=== PATIENT | female | born 1960 | race Two or more races ===

== ENCOUNTER 2022-05-05 04:24 | Inpatient (IN) | payer OTHER ==
[2022-05-05] VITALS (8 sets, daily range): BP systolic 98–130; BP diastolic 56–81
[~2022-05-05] VITALS: Ht 152.4 cm; Wt 62.1 kg
--- NOTE | 2022-05-05 05:12 | NUR ---
TELE/TREATER NOTES DIRECT ADMIT FROM [facility], BIB [facility] PERSONNEL VIA [employer] TO [id number]. PT AWAKE, A/OX4, MONGOLIAN SPEAKING, ABLE TO MAKE NEEDS KNOWN. SHE DENIES PAIN AT THIS TIME, NO C/O CHEST PAIN, NO N/V. RESPIRATIONS EVEN/UNLABORED. ON O2 @2LPM VIA NC. PT AMBULATORY WITH SLOW STEADY GAIT. WITH IV SITES: R-FA #22G AND L-AC #20G BOTH INTACT/PATENT/FLUSHES WELL. CONNECTED TO TELE MONITOR, READING SR, HR 88. ORIENTED TO ROOM, STAFF, AND SAFETY INSTRUCTIONS PROVIDED. PT VERBALIZED UNDERSTANDING. NO ACUTE DISTRESS NOTED. SAFETY MEASURES IN PLACE, BED IN LOWEST LOCKED POSITION, S/R UPX2, CALL LIGHT WITHIN REACH.
[2022-05-05] MEDS ORDERED: IV NS 0.9% 1,000 ML IV PRN (06:30)
[2022-05-05] MEDS ORDERED: HYDROCODONE/APAP 5/325MG TABLET PO PRN (06:30)
[2022-05-05] MEDS ORDERED: ACETAMINOPHEN 325 MG TABLET PO PRN (06:30)
[2022-05-05] MEDS ORDERED: MAG HYDROX/AL HYDROX/SIMETH 30 ML UDC PO PRN (06:30)
[2022-05-05] MEDS ORDERED: Z GUARD REMEDY 4 OZ OINT TP PRN (06:30)
[2022-05-05] MEDS ORDERED: MORPHINE SULFATE INJ 2 MG/ML DISP.SYRIN IV PRN (06:30)
[2022-05-05] MEDS ORDERED: MAGNESIUM HYDROXIDE 30 ML UDC PO PRN (06:30)
[2022-05-05] MEDS ORDERED: ZOLPIDEM TARTRATE 5 MG TABLET PO PRN (06:30)
[2022-05-05] MEDS ORDERED: NITROGLYCERIN 0.4 MG/TAB BOTTLE SL PRN (06:30)
[2022-05-05] MEDS ORDERED: ONDANSETRON HCL/PF 4 MG/2 ML VIAL IVP PRN (06:30)
--- NOTE | 2022-05-05 07:00 | NUR ---
MS RN OPENING NOTES PATIENT LAYING IN BED, A/O X 4, ABLE TO MAKE NEEDS KNOWN. TOLERATING WELL ON 2 LPM O2 VIA CANNULA WITH NO S/S RESPIRATORY DISTRESS. R-FA # 22G AND L-AC # 20 G CLEAN, INTACT, AND FLUSHING WELL. R-FA WITH NS INFUSING @ 75 ML/HR. NO COMPLAINTS OF PAIN OR DISCOMFORT AT THIS TIME. SAFETY MEASURES IN PLACE: BED IN LOWEST LOCKED POSITION, SIDE RAILS UP X 2, CALL LIGHT WITHIN REACH. WILL CONTINUE TO MONITOR.
[2022-05-05] MEDS: PANTOPRAZOLE 40 MG TABLET.DR PO SCH (07:59)
[2022-05-05] MEDS: ASPIRIN 81 MG TAB.CHEW PO SCH (08:56)
[2022-05-05 09:26] LABS: BASOPHILS % (AUTO) 0.9 % (0.0-2.0); HEMATOCRIT 31 % (33-45); HEMOGLOBIN 9.9 g/dL (11.5-14.8); LYMPHOCYTES # (AUTO) 0.5 K/uL (0.8-4.8); LYMPHOCYTES % (AUTO) 23.5 % (20.0-44.0); MEAN CORPUSCULAR HGB CONC 32 g/dl (31.0-36.0); MEAN CORPUSCULAR VOLUME 84 fL (82-100); MONOCYTES # (AUTO) 0.3 K/uL (0.1-1.30); MONOCYTES % (AUTO) 13.6 % (2.0-12.0); NEUTROPHILS # (AUTO) 1.3 K/uL (1.8-8.9); PLATELET COUNT (AUTO) 99 K/uL (150-450); RED BLOOD CELL COUNT(AUTO) 3.66 MIL/uL (4.0-5.2); WHITE BLOOD COUNT (AUTO) 2.3 K/uL (4.3-11.0)
[2022-05-05 09:57] LABS: CALCIUM, SERUM 7.9 mg/dL (8.5-10.1); CREATININE 0.5 mg/dL (0.6-1.3)
[2022-05-05] MEDS ORDERED: MAG30ORA PO (10:36)
[2022-05-05] MEDS ORDERED: PANT40TA2 PO (10:36)
[2022-05-05] MEDS ORDERED: MONT10TA22 PO (10:36)
[2022-05-05] MEDS ORDERED: CALC500T13 PO (10:36)
[2022-05-05] MEDS ORDERED: ERGO500093 PEG (10:36)
[2022-05-05] MEDS ORDERED: ALBU18HF2 IH (10:36)
[2022-05-05] MEDS ORDERED: POLY17PO4 PO (10:36)
[2022-05-05] MEDS ORDERED: TIOT18CA3 IH (10:36)
[2022-05-05] MEDS ORDERED: ACET-2605 PO (10:36)
[2022-05-05] MEDS ORDERED: MOME13HF IH (10:36)
[2022-05-05] MEDS ORDERED: ALEN70TA80 PO (10:36)
[2022-05-05] MEDS ORDERED: DICL100G26 TP (10:36)
[2022-05-05] MEDS ORDERED: ENOXAPARIN SODIUM 40 MG/0.4 ML DISP.SYRIN SQ SCH (12:00)
[2022-05-05 13:06] LABS: BAND % (MANUAL) 1 % (0.0-5.0); EOSINOPHILS % (MANUAL) 7 % (0-4); LYMPHOCYTES % (MANUAL) 23 % (16-48); MONOCYTES % (MANUAL) 10 % (0-11.0); NEUTROPHILS % (MANUAL) 59 (42-76)
--- NOTE | 2022-05-05 19:30 | NUR ---
BEEF SPLITTER NOTES RECEIVED LAYING ON BED A/O X4,SPEAK AZERI,BREATHING NON LABORED,O2 IN USED AT 2L/NC,O2 SAT 97%.IVF NS AT 75ML/HR RATE IN PROGRESS INFUSING ON RFA VIA IV PUMP,SITE PATENT.FALL PRECAUTION OBSERVED,BED ON LOWEST POSITION AND LOCKED,BED ALARM TRIGGERED.CALL LIGHT IN REACH,NEEDS ANTICIPATED.
[2022-05-06 04:00] VITALS: BP 111/67
--- NOTE | 2022-05-06 06:26 | NUR ---
HUMAN FACTORS SCIENTIST NOTES SLEPT WITH INTERVALS,STILL ON IV FLUIDS,BRP,NO COMPLAINTS OF CHEST PAIN.NO SOB.CALL LIGHT IN REACH,NEEDS ATTENDED.
[2022-05-06 06:32] LABS: BASOPHILS % (AUTO) 0.5 % (0.0-2.0); EOSINOPHILS % (AUTO) 8.7 % (0.0-6.0); HEMATOCRIT 30 % (33-45); LYMPHOCYTES # (AUTO) 0.5 K/uL (0.8-4.8); LYMPHOCYTES % (AUTO) 29.3 % (20.0-44.0); MEAN CORPUSCULAR HGB CONC 34 g/dl (31.0-36.0); MEAN CORPUSCULAR VOLUME 83 fL (82-100); MONOCYTES # (AUTO) 0.3 K/uL (0.1-1.30); MONOCYTES % (AUTO) 15.9 % (2.0-12.0); NEUTROPHILS # (AUTO) 0.8 K/uL (1.8-8.9); NEUTROPHILS % (AUTO) 45.6 % (43.0-81.0); PLATELET COUNT (AUTO) 95 K/uL (150-450); RED BLOOD CELL COUNT(AUTO) 3.58 MIL/uL (4.0-5.2)
[2022-05-06 07:11] LABS: WHITE BLOOD COUNT (AUTO) 1.8 K/uL (4.3-11.0)
[2022-05-06 07:25] LABS: ALBUMIN 2.2 g/dL (3.4-5.0); BILIRUBIN,TOTAL 1.3 mg/dL (0.2-1.0); CALCIUM, SERUM 7.9 mg/dL (8.5-10.1); CREATININE 0.5 mg/dL (0.6-1.3); MAGNESIUM 1.8 mg/dL (1.8-2.4); POTASSIUM 4.1 mmol/L (3.5-5.1)
[2022-05-06] MEDS: PANTOPRAZOLE 40 MG TABLET.DR PO SCH (07:30)
--- NOTE | 2022-05-06 07:30 | NUR ---
SEED SALES MANAGER OPENING NOTES RECEIVED PATIENT AWAKE IN BED,PATIENT IS A/O X 4, ABLE TO MAKE NEEDS KNOWN IN HEBREW LANGUAGE. ON TELE MONITOR READING SR 85.ON O2 LPM VIA NASAL CANNULA WITH NO S/S RESPIRATORY DISTRESS NOTED. R-FA # 20G , INTACT, AND FLUSHING WELL. R-FA WITH NS INFUSING @ 75 ML/HR. NO COMPLAINTS OF PAIN OR DISCOMFORT AT THIS TIME. SAFETY MEASURES IN PLACE: BED IN LOWEST LOCKED POSITION, SIDE RAILS UP X 2, CALL LIGHT WITHIN REACH. WILL CONTINUE TO MONITOR.
[2022-05-06 07:57] LABS: THYROID STIMULATING HORMONE 2.963 uIU/mL (0.358-3.74)
[2022-05-06 08:00] VITALS: BP 119/63
[2022-05-06] MEDS: ASPIRIN 81 MG TAB.CHEW PO SCH (08:22)
[2022-05-06 11:11] LABS: EOSINOPHILS % (MANUAL) 12 % (0-4); LYMPHOCYTES % (MANUAL) 22 % (16-48); MONOCYTES % (MANUAL) 12 % (0-11.0); NEUTROPHILS % (MANUAL) 54 (42-76)
--- NOTE | 2022-05-06 14:45 | NUR ---
DETAILER FURNITURE NOTES DISCHARGE PATIENT IN STABLE CONDITION. NO PAIN NOTED. NO SOB NOTED. NO DISTRESS NOTED. ALL THE BELONGINGS ACCOUNTED AND SIGNED FOR. ALL THE DISCHARGE INSTRUCTION GIVEN TO THE PATIENT VIA NEIL KRAFT TRANSLATION. PATIENT VERBALIZED UNDERSTANDING. PATIENT STATED SHE HAS [place] FOR HER HOME AND SHE CAN GO HOME BY HERSELF BY BUS. ALL NEEDS ATTENDED. NORMAL VITAL SIGNS. IV SITE REMOVED. COVERED WITH DRY DRESSING . NO BLEEDING NOTED. ID BAND REMOVED. WHEELED THE PATIENT TO THE LOBBY. PATIENT LEFT HOSPITAL IN STABLE CONDITION. MD AND CHARGE NURSE AWARE OF THE DISCHARGE.
== END 2022-05-06 14:45 | disposition home or self-care (01) | DRG 203 ==
LOC: TELE 04:24 → MED 05-06 10:11
PROVIDERS: ADMIT Internal Medicine; ATTEND Internal Medicine
DX: M94.0 Chondrocostal junction syndrome [Tietze] (principal); D61.818 Other pancytopenia; J96.11 Chronic respiratory failure with hypoxia; E27.40 Unspecified adrenocortical insufficiency; E87.1 Hypo-osmolality and hyponatremia; K74.60 Unspecified cirrhosis of liver; J45.909 Unspecified asthma, uncomplicated; Z99.81 Dependence on supplemental oxygen; E87.70 Fluid overload, unspecified; K42.9 Umbilical hernia without obstruction or gangrene; Z20.822 Contact with and (suspected) exposure to COVID-19
CPT/HCPCS: 36415; 80048-TC; 80053-TC; 80061-TC; 83735-TC; 84100-TC; 84443-TC; 84484-TC; 85025-TC; 87081-TC; 93307-TC; 94799-TC; G0378; J7030